=== PATIENT | female | born 1970 | race Caucasian/White ===

== ENCOUNTER → 2017-08-03 | Outpatient (CLI) | payer BC ==
[~2017-08-03] MED LIST: CRS350T PO; HYDR-2890 PO; HYDR1TAB PO; IBUP-15 PO; IBUP-1773 PO; LOESTRIN 24; NAPR220T76 PO
--- NOTE | 2017-08-03 12:38 | Diagnostic Imaging Report ---
PROCEDURE: US Gallbladder. TECHNIQUE: Multiple real-time grayscale images were obtained over the right upper quadrant in various projections. INDICATION: Right upper quadrant pain. FINDINGS: The visualized portion of the pancreas appear unremarkable. The liver is fairly homogeneous with no focal lesion seen. Hepatopetal flow in the portal vein is seen. The gallbladder demonstrates no stones or wall thickening. No pericholecystic fluid is seen. The CBD is 5 mm in caliber. The right kidney is 11.2 cm in length with no hydronephrosis or focal lesion. There is no fluid collection in the upper right abdomen seen. IMPRESSION: Unremarkable exam. Dictated by: Dictated on workstation # [id number]
== END ==
LOC: RAD 07:26
PROVIDERS: ATTEND Surgery
DX: R10.11 Right upper quadrant pain (principal)
CPT/HCPCS: 76705

== ENCOUNTER → 2017-08-06 | Outpatient (CLI) | payer BC ==
[~2017-08-06] MED LIST changes: +CATHETER FLUSH 10 ML SYR IV PRN
--- NOTE | 2017-08-06 14:40 | Diagnostic Imaging Report ---
CLINICAL INDICATION: Patient with right upper quadrant pain. COMPARISON: Gallbladder ultrasound dated 08/03/2017. PROCEDURE: The patient was administered 5.0 millicuries of technetium 99m Choletec. After 60 minutes of the images, one can of Ensure was drink followed by another 60 minutes of imaging. A nuclear medicine hepatobiliary scan with ejection fraction was performed. FINDINGS: There is prompt uptake and excretion of radiotracer by the liver. Activity is visible in the gallbladder by 15 minutes and the small bowel by 25 minutes. Ejection fraction of the gallbladder is calculated at 50% (normal >35%). The gallbladder visibly empties on the scans following the ingestion of Ensure. IMPRESSION: Normal hepatobiliary scan with normal gallbladder ejection fraction. Dictated by: Dictated on workstation # [id number]
== END ==
LOC: CARD 11:51
PROVIDERS: ATTEND Surgery
DX: R10.11 Right upper quadrant pain (principal)
CPT/HCPCS: 78227

== ENCOUNTER 2017-08-10 12:00 | Outpatient (CLI) | payer BC ==
[~2017-08-10] VITALS: Ht 172.7 cm; Wt 70.8 kg
[~2017-08-10 12:00] MED LIST changes: -CATHETER FLUSH 10 ML SYR IV PRN
[2017-08-10 12:14] VITALS: BP 110/68
[2017-08-10 12:29] LABS: BASOPHILS # (AUTO) 0.1 10^3/uL (0.0-0.1); BASOPHILS % (AUTO) 1 % (0-10); EOSINOPHILS # (AUTO) 0.4 10^3/uL (0.0-0.3); EOSINOPHILS % (AUTO) 4 % (0-10); LYMPHOCYTES # (AUTO) 2.9 X 10^3 (1.0-4.0); LYMPHOCYTES % (AUTO) 32 % (12-44); MEAN CORPUSCULAR HEMOGLOBIN 32 PG (25-34); MEAN CORPUSCULAR HGB CONC 34 G/DL (32-36); MEAN CORPUSCULAR VOLUME 95 FL (80-99); MEAN PLATELET VOLUME 9.7 FL (7.4-10.4); MONOCYTES # (AUTO) 0.5 X 10^3 (0.0-1.0); MONOCYTES % (AUTO) 5 % (0-12); NEUTROPHILS # (AUTO) 5.4 X 10^3 (1.8-7.8); NEUTROPHILS % (AUTO) 58 % (42-75); PLATELET COUNT 317 10^3/uL (130-400); RED BLOOD COUNT 4.32 10^6/uL (4.35-5.85); RED CELL DISTRIBUTION WIDTH 12.5 % (10.0-14.5); WHITE BLOOD COUNT 9.2 10^3/uL (4.3-11.0)
== END 2017-08-10 12:17 | disposition home or self-care (01) ==
LOC: PREOP 12:00
PROVIDERS: ATTEND Surgery
DX: Z01.818 Encounter for other preprocedural examination (principal); J21.9 Acute bronchiolitis, unspecified; R10.13 Epigastric pain; K82.8 Other specified diseases of gallbladder
CPT/HCPCS: 36415; 85025; 87081

== ENCOUNTER 2017-08-16 12:28 | Day surgery (SDC) | payer BC ==
[~2017-08-16] VITALS: Ht 172.7 cm; Wt 70.8 kg
--- OUTSIDE RECORDS SUMMARY | 2017-08-16 12:31 | XMS REPORT | Continuity of Care Document ---
Author Author [facility] Organization [facility] Address Unknown Phone Unavailable Allergies Active Description Code Type Severity Reaction Onset Reported/Identified Relationship to Patient Clinical Status Yes NKANo Known Allergies NKA Miscellaneous Allergy Mild N/A 09/15/2008 Medications Problems Date Dx Coded Attending Type Code Diagnosis Diagnosed By 04/07/2011 Ot 813.44 FX LOW RADIUS W ULNA-CL 04/07/2011 Ot 959.3 ELB/FOREARM/WRST INJ NOS 04/07/2011 Ot E000.8 OTHER EXTERNAL CAUSE STATUS 04/07/2011 Ot E001.0 ACTIVITIES INVOLVING WALKING, MARCHING A 04/07/2011 Ot E849.0 ACCIDENT IN HOME 04/07/2011 Ot E888.9 FALL NOS 04/12/2011 Ot 813.44 FX LOW RADIUS W ULNA-CL 04/12/2011 Ot E000.8 OTHER EXTERNAL CAUSE STATUS 04/12/2011 Ot E016.1 ACTIVITIES INVOLVING GARDENING AND LANDS 04/12/2011 Ot E849.0 ACCIDENT IN HOME 04/12/2011 Ot E888.9 FALL NOS 06/09/2012 Ot 724.2 LUMBAGO 04/30/2014 INA JUARES FACC, ALI FACP CCDS Ot 305.1 TOBACCO USE DISORDER 04/30/2014 INA JUARES FACC, ALI FACP CCDS Ot 786.59 CHEST PAIN NEC 04/30/2014 INA JUARES FACC, ALI FACP CCDS Ot V17.3 FAM HX-ISCHEM HEART DIS 09/15/2015 Ot 813.44 09/15/2015 Ot E000.8 09/15/2015 Ot E001.0 09/15/2015 Ot E849.0 09/15/2015 Ot E888.9 09/15/2015 Ot V72.83 09/15/2015 Ot V74.8 09/15/2015 Ot 240.9 09/15/2015 Ot V76.12 09/15/2015 Ot 240.9 09/15/2015 Ot 793.80 06/15/2016 Ot 813.44 FX LOW RADIUS W ULNA-CL 06/15/2016 Ot E000.8 OTHER EXTERNAL CAUSE STATUS 06/15/2016 Ot E001.0 ACTIVITIES INVOLVING WALKING, MARCHING A 06/15/2016 Ot E849.0 ACCIDENT IN HOME 06/15/2016 Ot E888.9 FALL NOS 06/15/2016 Ot V72.83 EXAM PRE-OPERATIVE NEC 06/15/2016 Ot V74.8 SCREEN-BACTERIAL DIS NEC 06/15/2016 Ot 240.9 GOITER NOS 06/15/2016 Ot V76.12 OTH SCREEN MAMMO-MALIGN NEOPLASM OF JONNY 06/15/2016 Ot 240.9 GOITER NOS 06/15/2016 Ot 793.80 UNSPEC ABNORMAL MAMMOGRAM 10/17/2016 Ot 240.9 GOITER NOS 10/17/2016 Ot V76.12 OTH SCREEN MAMMO-MALIGN NEOPLASM OF JONNY 10/17/2016 Ot 240.9 GOITER NOS 10/17/2016 Ot 793.80 UNSPEC ABNORMAL MAMMOGRAM 11/05/2016 Ot 240.9 GOITER NOS 11/05/2016 Ot V76.12 OTH SCREEN MAMMO-MALIGN NEOPLASM OF JONNY 11/05/2016 Ot 240.9 GOITER NOS 11/05/2016 Ot 793.80 UNSPEC ABNORMAL MAMMOGRAM 02/03/2017 Ot 240.9 GOITER NOS 02/03/2017 Ot 793.80 UNSPEC ABNORMAL MAMMOGRAM Procedures Results Encounters ACCT No. Visit Date/Time Discharge Status Pt. Type Provider Facility Loc./Unit Complaint [id number] 08/06/2017 12:00:00 2016 23:59:59 CLS Preadmit IZZY MELARA MD [facility] CARD RUQ PAIN [id number] 08/03/2017 07:45:00 2016 23:59:59 CLS Preadmit IZZY MELARA MD [facility] RAD RUQ PAIN [id number] 04/29/2014 12:38:00 2013 10:30:00 DIS Inpatient INA JUARES FACC, DOTTIE HINES CCDS [facility] CSD CHEST PAIN [id number] 06/09/2012 15:12:00 Document Registration [id number] 08/22/2011 14:04:00 Document Registration [id number] 08/16/2011 11:41:00 Document Registration [id number] 08/08/2011 09:43:00 Document Registration [id number] 04/12/2011 05:35:00 Document Registration [id number] 04/11/2011 10:05:00 Document Registration [id number] 04/07/2011 19:42:00 Document Registration
[2017-08-16] MEDS ORDERED: ceFAZolin 1 GM/NS 50 ML IVPB IV ONE ×2 (12:45)
[2017-08-16] MEDS ORDERED: HYDROcodone/APAP 5 MG/325 MG (LORTAB) TAB PO ONE (13:00)
[2017-08-16] MEDS ORDERED: morphine INJ 10 MG/ML 1ML (SYR OR VIAL) IVP PRN (13:00)
[2017-08-16] MEDS ORDERED: ACETAMINOPHEN 325 MG TABLET/CAPLET (TYLENOL) PO PRN (13:00)
[2017-08-16] MEDS ORDERED: ONDANSETRON 4 MG/2 ML (SDV) Z0FRAN IVP PRN ×2 (13:00→16:45)
--- NOTE | 2017-08-16 13:00 | Progress Note-Pre Operative ---
Pre-Operative Progress Note H&P Reviewed The H&P was reviewed, patient examined and no changes noted. Date Seen by Provider: Aug 16, 2017 Time Seen by Provider: 12:45 Date H&P Reviewed: Aug 16, 2017 Time H&P Reviewed: 12:45 Pre-Operative Diagnosis: biliary dyskinesia IZZY MELARA MD Aug 16, 2017 1:00 pm
[2017-08-16] MEDS ORDERED: SEVOFLURANE (ULTANE) 15 ML INHAL SOLN ONE (13:08)
[2017-08-16] MEDS ORDERED: ONDANSETRON 4 MG/2 ML (SDV) Z0FRAN ONE ×3 (13:08→14:42)
[2017-08-16] MEDS ORDERED: fentaNYL INJECTION 100 MCG/2 ML AMP ONE ×2 (13:08→16:06)
[2017-08-16] MEDS ORDERED: DEXAMETHASONE 10 MG/ML (DECADRON) 1 ML VIAL ONE (13:08)
[2017-08-16] MEDS ORDERED: MIDAZOLAM 2 MG/2 ML (VERSED) VIAL ONE (13:08)
[2017-08-16] MEDS ORDERED: LIDOCAINE PF 2% 5 ML (XYLOCAINE) VIAL ONE (13:08)
[2017-08-16] MEDS ORDERED: proPOfol 200 MG/20 ML (DIPRIVAN) VIAL IV ONE (13:08)
[2017-08-16] MEDS ORDERED: ROCURONIUM 50 MG/5 ML (ZEMURON) VIAL IV ONE (13:12)
[2017-08-16] MEDS ORDERED: SCOPOLAMINE 1.5 MG (TRANSDERM-SCOP) PATCH TOP ONE (13:15)
[2017-08-16] MEDS ORDERED: FAMOTIDINE 20MG/2ML IV (PEPCID) IV ONE (13:15)
[2017-08-16] MEDS ORDERED: ONDANSETRON 4 MG/2 ML (SDV) Z0FRAN IV ONE (13:15)
[2017-08-16] MEDS: LACTATED RINGERS 1,000 ML IV PRN ×2 (13:26→16:40)
[2017-08-16] MEDS ORDERED: AMOX-358 PO (13:28)
[2017-08-16] MEDS ORDERED: BUP/EPI 0.5% 1:200,000 (MARCAINE) 10ML VIAL IJ ONE (14:12)
[2017-08-16] MEDS ORDERED: morphine INJ 10 MG/ML 1ML (SYR OR VIAL) ONE ×2 (14:42→16:05)
[2017-08-16] MEDS ORDERED: NEOSTIGMINE (BLOXIVERZ ) 1 MG/1ML 10 ML VIAL ONE (15:57)
[2017-08-16] MEDS ORDERED: GLYCOPYRROLATE 0.2 MG/ML (ROBINUL) 2 ML VIAL ONE (15:57)
--- NOTE | 2017-08-16 16:30 | Progress Note-Post Operative ---
Post-Operative Progess Note Surgeon (s)/Provider Relations Specialist (s) Surgeon IZZY MELARA MD Provider Relations Specialist: fransisco lane SECURITY OPERATIONS SPECIALIST Pre-Operative Diagnosis biliary dyskinesia Post-Operative Diagnosis same, reflux eosphagitits(class B), moderate gastritis. Procedure & Operative Findings Date of Procedure 08/16/17 Procedure Performed/Findings EGD with bx. Anesthesia Type GET Estimated Blood Loss Estimated blood loss (mL): minimal Specimens/Packing Specimens Removed gallbladder IZZY MELARA MD Aug 16, 2017 4:30 pm
[2017-08-16] MEDS ORDERED: PANT40TA2 PO (16:32)
[2017-08-16] MEDS ORDERED: HYDR-3816 PO (16:32)
--- NOTE | 2017-08-16 16:33 | Discharge Inst-Surgical ---
D/C Lap Instructions-KELTON New, Converted, or Re-Newed RX: RX on Chart Follow Up Appt in 2 weeks Activity as tolerated No driving for 24 hours No driving while on pain medications Incentive Spirometry use every 2 hours while awake Regular Diet Symptoms to Report: Fever over 101 degree F, Nausea/Vomiting Infection Signs and Symptoms to report: Increased redness, Foul odor of wound, Increased drainage Bathing instructions: May shower Operative Area Clean/Dry; Keep incision clean/dry If any problems/questions: Contact your physician or go to Emergency Room IZZY MELARA MD Aug 16, 2017 4:33 pm
[2017-08-16] MEDS: morphine INJ 10 MG/ML 1ML (SYR OR VIAL) IVP PRN ×2 (16:42→16:50)
[2017-08-16] MEDS ORDERED: HYDROmorphone (DILAUDID) 2 MG/ML VIAL IVP PRN (16:45)
[2017-08-16] MEDS ORDERED: PROMETHAZINE INJ 25 MG/ML (PHENERGAN) AMP IVP PRN (16:45)
[2017-08-16 17:30] VITALS: BP 113/69
[2017-08-16 18:00] VITALS: BP 107/58
[2017-08-16 18:20] VITALS: BP 107/58
--- NOTE | 2017-08-17 06:24 | OPERATIVE REPORT ---
DATE OF SERVICE: 08/16/2017 PREOPERATIVE DIAGNOSES: Symptomatic biliary dyskinesia, peptic ulcer disease and gastroesophageal reflux disease. POSTOPERATIVE DIAGNOSES: Symptomatic biliary dyskinesia, reflux esophagitis class B and moderate gastritis. PROCEDURE: Laparoscopic cholecystectomy, EGD with biopsy. SURGEON: Dr. Melara. MANAGER WHOLESALE: Lino Clark APRN ANESTHESIA: General endotracheal. ESTIMATED BLOOD LOSS: Minimal. FINDINGS: Moderate gallbladder wall dilatation. No stones identified. Reflux esophagitis class B, no hiatal hernia, moderate-severity gastritis. No formal ulcers, polyps or any neoplasms. Pylorus and duodenum appeared normal with no distal obstructions. DISPOSITION: The patient tolerated the procedure well. INDICATIONS: The patient is a 46-year-old female who has had a several-month issue with pain in the epigastric region as well as the right upper abdominal quadrant. She was unsure what this was before. She had reported that she has had issues with peptic ulcer disease as well as reflux for several years now and has been taking [id number] antacids. She reports that the pain that she has been having in the past few months is new and is more localized in the epigastric region as well as the right upper abdominal quadrant and is usually followed after a meal. An ultrasound was performed, which does not show any gallstones. A HIDA scan was then performed, which did show a normal ejection fraction of 50%; however, after the administration of Kinevac, she did have reproduction of symptoms with pain in the right upper abdominal quadrant as well as nausea and vomiting for approximately [id number] after the administration of the Kinevac analog. DESCRIPTION OF PROCEDURE: The patient was brought to the operating room, laid supine on the table. After adequate IV pain and sedative medications and general endotracheal intubation, the abdomen was prepped and draped in a standard surgical fashion. A 0.5% Marcaine with epinephrine was then used to anesthetize the overlying skin in the left upper abdominal quadrant. A small transverse skin incision made using a 15 blade. A 0 silk suture was applied to the medial aspect of the incision for retraction, a Veress needle inserted with a low opening pressure of 0 mmHg and the abdomen was insufflated to 15 mmHg pressure. The Veress needle removed and a 5 mm Xcel trocar placed followed by a 5 mm 45-degree angle laparoscope visualizing the peritoneal cavity. A 4-quadrant abdominal exploration was performed. There was moderate distention of the gallbladder; however, no inflammatory signs. The remainder of the omentum, small bowel, stomach and liver appeared normal. Under direct visualization, we then proceeded to place a supraumbilical 10 mm port after the skin and peritoneum were anesthetized using 0.5% Marcaine with epinephrine and a transverse skin incision made using a 15 blade. In a similar manner, a right upper abdominal quadrant 5 mm port was placed. The patient was then placed in reverse Trendelenburg position as well as plane right side up, left side down. The fundus of the gallbladder was then retracted anteriorly and superiorly. The hepatoduodenal ligament was then opened using electrocautery on the hook instrument as well as blunt dissection. The entire critical view of safety was identified including the triangle of Calot as well as the cystic duct and artery going into the gallbladder as well as the liver behind the proximal gallbladder. A timeout was then taken and the cystic duct and artery were clipped proximally and distally and cut with EndoShears. The gallbladder was then dissected off the liver bed using electrocautery on the hook instrument with visualization of good hemostasis as well as no leaking ducts of Luschka. The gallbladder was removed through the 10 mm port site using an EndoCatch bag. The 10 mm port site fascia and peritoneum were then closed under direct visualization using a Malick-Anabel device and 0 Vicryl suture. The abdomen was desufflated, the remaining ports were removed. All skin incisions were closed using 4-0 Monocryl running subcuticular sutures. Wounds were then cleaned and covered with Dermabond. The patient tolerated this portion of the procedure well. We will start IV and oral pain medication as well as a clear liquid diet. Once she is tolerating clears and has good pain control with oral pain medications and ambulating well, we will discharge her home. She will be instructed to do no heavy lifting or exertion for the next 2 weeks. Under the same general endotracheal anesthesia, we then proceeded with the EGD portion of the procedure. The mouthpiece was applied. The endoscope was placed in the mouth, visualizing the pharynx and hypopharyngeal region. Vocal cords, epiglottis and vallecula identified and appeared to be normal. The endotracheal tube was visualized going through the vocal cords. The endoscope was then gently intubated in the esophageal opening and esophagus insufflated. The endoscope was then advanced through the first, second and third portions of the esophagus. At the level of the GE junction, a reflux esophagitis class B identified. There were no ulcers or strictures identified in this region. A biopsy was taken with forceps with visualization of good hemostasis. The endoscope was then easily advanced into the stomach and the endoscope retroflexed visualizing no significant hiatal hernia. A moderate-severity gastritis was noted. There were no formal ulcers, polyps or any neoplasms identified. A biopsy was taken from stomach antrum with visualization of good hemostasis. The endoscope was then advanced through the pylorus and the first and second portions of the duodenum, which appeared normal with no distal obstructions. The endoscope was then slowly withdrawn taking a second look and suctioning residual air with no additional findings. The patient tolerated this portion of the procedure well. For her reflux esophagitis and gastritis, we will recommend necessary lifestyle and diet accommodations including smoking cessation as well as avoidance of caffeinated and alcoholic beverages as well as spicy, greasy and acidic foods. She also needs to take small and more frequent meals, avoidance of eating at night as well as head elevation while lying supine. We will also start her on Protonix 40 mg daily. Job ID: [id number] DocumentID: [id number] Dictated Date: 08/16/2017 16:40:28 Bankruptcy Attorney Date: 08/17/2017 02:08:03 Dictated By: IZZY MELARA MD
== END 2017-08-16 18:20 | disposition home or self-care (01) ==
LOC: SDC 12:28
PROVIDERS: ATTEND Surgery
DX: K81.1 Chronic cholecystitis (principal); K21.0 Gastro-esophageal reflux disease with esophagitis; K29.70 Gastritis, unspecified, without bleeding; F17.210 Nicotine dependence, cigarettes, uncomplicated
CPT/HCPCS: 94664

== ENCOUNTER 2023-01-23 22:17 | Emergency (ER) | payer BC ==
[~2023-01-23] VITALS: Ht 172 cm; Wt 63.5 kg
[~2023-01-23 22:17] MED LIST changes: +AMOX-358 PO; +HYDR-34 PO; +PANT40TA2 PO
[2023-01-23] MEDS ORDERED: CYCLOBENZAPRINE 10 MG (FLEXERIL) TAB PO STA (22:36)
[2023-01-23] MEDS ORDERED: LIDO700A45 TP (22:41)
[2023-01-23] MEDS ORDERED: GABA-486 PO (22:41)
[2023-01-23] MEDS ORDERED: CYCL10TA25 PO (22:41)
--- NOTE | 2023-01-23 22:42 | ED Back Pain ---
General Chief Complaint: Back Problems Stated Complaint: BACK PAIN Nursing Triage Note: PT STATES HX OF BACK PAIN, MED SHOT BY THIS MORNING BUT PAIN CAME BACK Source of Information: Patient Exam Limitations: No Limitations History of Present Illness Date Seen by Provider: Jan 23, 2023 Time Seen by Provider: 22:24 Initial Comments 52-year-old female with past medical history of chronic low back pain coming in due to low back pain. Tweaked her back lifting something Sunday, no weakness, numbness, or any other concerns. Does have pain with walking. Saw her doctor earlier this morning shot of Toradol. Had 1 episode where she urinated on herself, she believes it was because she could not make it to the bathroom. Has made it to the bathroom since then and has not had any bowel incontinence. Denies any fever, trauma, or any other concerns. does not take any medicines daily. Allergies and Home Medications Allergies Coded Allergies: NKANo Known Allergies (Unverified Allergy, Mild, 09/15/08) Patient Home Medication List Home Medication List Reviewed: Yes Amoxicillin/Potassium Clav (Augmentin 875-125 Tablet) 1 Each Tablet, 1 EACH PO BID, (Reported) Entered as Reported by: NATALIYA YANG on 08/16/17 1328 Cyclobenzaprine HCl (Cyclobenzaprine HCl) 10 Mg Tablet, 10 MG PO Q8H PRN for SPASMS Prescribed by: ALIZA KRUSE on 01/23/232240 Gabapentin (Gabapentin) 100 Mg Capsule, 300 MG PO Q8H Prescribed by: ALIZA KRUSE on 01/23/232240 Hydrocodone Bit/Acetaminophen (Lortab 7.5 Mg Tablet) 1 Each Tablet, 1-2 EACH PO Q4H Prescribed by: IZZY MELARA on 08/16/17 163 Lidocaine (Lidocaine 5% Patch) 5 % Adh..patch, 1 EACH TP Q12H PRN for Neuropathic pain Prescribed by: ALIZA KRUSE on 01/23/232240 Pantoprazole Sodium (Protonix) 40 Mg Tablet.dr, 40 MG PO DAILY Prescribed by: IZZY MELARA on 08/16/17 163 Review of Systems Constitutional: No fever EENTM: no symptoms reported Respiratory: no symptoms reported Cardiovascular: no symptoms reported Musculoskeletal: see HPI Skin: no symptoms reported Psychiatric/Neurological: No Symptoms Reported Past Hapnltp-Rgoidu-Agtadg Hx Patient Social History Tobacco Use?: Yes Tobacco type used: Cigarettes Smoking Status: Current Everyday Smoker Substance use?: No Alcohol Use?: Yes Alcohol Frequency: Once in a while Immunizations Up To Date Tetanus Booster (TDap): More than 5yrs PED Vaccines UTD: Yes Seasonal Allergies Seasonal Allergies: No Past Medical History Surgery/Hospitalization HX: HYSTERECTOMY, MARIO Hysterectomy Reproductive Disorders: Yes TEACHER LEARNING DISABLED History: Hysterectomy Sexually Transmitted Disease: No Gastroesophageal Reflux, Gall Bladder Disease Adverse Reaction/Blood Tranf: No Family Medical History Family history: Cardiovascular disease 19 FATHER (40s) Physical Exam Vital Signs Vital Signs - First Documented 01/23/23 22:30 Temp 36.8 Pulse 109 Resp 20 B/P (MAP) 139/90 (106) Pulse Ox 96 O2 Delivery Room Air Capillary Refill : Less Than 3 Seconds Height, Weight, BMI Height: 5'8.00" Weight: 156lbs. 0.0oz. 70.823934mq; 21.00 BMI Method:Stated General Appearance: No Apparent Distress, WD/WN HEENT: PERRL/EOMI, Normal ENT Inspection, Pharynx Normal Neck: Full Range of Motion, Normal Inspection, Non Tender, Supple Cardiovascular: Regular Rate, Rhythm, No Edema, Normal Peripheral Pulses Respiratory: Chest Non Tender, Lungs Clear, Normal Breath Sounds, No Accessory Muscle Use Gastrointestinal: Normal Bowel Sounds, Non Tender, Soft Back: Normal Inspection, No CVA Tenderness, No Vertebral Tenderness, Other (Paravertebral tenderness in her lower back, negative straight leg test, normal perineal sensation) Extremity: Normal Capillary Refill, Normal Inspection, Normal Range of Motion, Non Tender, No Calf Tenderness, No Pedal Edema Neurologic/Psychiatric: Alert, Oriented x3, No Motor/Sensory Deficits, Normal Mood/Affect Skin: Normal Color, Warm/Dry Progress/Results/Core Measures Results/Orders My Orders Orders - ALIZA KRUSE MD Ct Lumbar Spine Wo (01/23/23 22:36) Ketorolac Injection (Toradol Injection) (01/23/23 22:45) Dexamethasone Oral Soln (Ed) (Decadron I (01/23/23 22:36) Cyclobenzaprine Tablet (Flexeril Tablet) (01/23/23 22:36) Gabapentin Capsule/Tablet (Neurontin Cap (01/23/23 22:45) Medications Given in ED Current Medications Medications Dose Ordered Sig/Arnaldo Route Start Time Stop Time Status Last Admin Dose Admin Gabapentin 300 mg ONCE ONCE PO 01/23/23 22:45 01/23/23 22:46 DC 01/23/23 22:49 300 MG Ketorolac Tromethamine 15 mg ONCE ONCE IM 01/23/23 22:45 01/23/23 22:46 DC 01/23/23 22:45 15 MG Vital Signs/I&O 01/23/23 01/23/23 22:30 22:45 Temp 36.8 36.8 Pulse 109 Resp 20 B/P (MAP) 139/90 (106) Pulse Ox 96 O2 Delivery Room Air Blood Pressure Mean: 106 Progress Progress Note : Progress Note 52-year-old female presenting for low back pain. ABCs were intact and vitals were stable on presentation. Physical exam with no focal neurodeficits, normal cranial sensation, the patient does not have any incontinence at this time. She believes the episode earlier was likely due to her pain and not being able to make it to the bathroom. Give him some IM shots and oral medications here for symptomatic management. CT imaging ordered on stat rad read showed a 4 to 5 mm right paracentral disc protrusion at L4 likely impinging on the right L4 nerve root. She is not showing symptoms of L4 radiculopathy on exam. Certainly not showing any signs of cauda equina here in the emergency department or significant stenosis. She will need follow-up with spine surgeon as an outpatient. Sent medications to her pharmacy for outpatient pain control. Departure Impression Primary Impression: Low back pain Qualified Codes: M54.50 - Low back pain, unspecified Disposition: 01 HOME, SELF-CARE Condition: Stable Departure-Patient Inst. Decision time for Depature: 02:49 Referrals: SHI GUTIERRES MD (PCP/Family) Primary Care Physician Patient Instructions: Low Back Pain ED Add. Discharge Instructions: On the CT today you do have some disc bulging at L3 and L4. The symptoms actually do not fit necessarily what you have been feeling, but certainly could be causing some pain. Please call your doctor and get a referral to a spine surgeon if you are not improving in the next 2 weeks. Take ibuprofen and/or Tylenol as needed for pain. Other pain medicines were sent to your pharmacy to try to help with your discomfort. If you are unable to urinate, consistently or urinating on yourself, or are defecating on yourself, we want you to see the doctor sooner. Scripts Lidocaine (Lidocaine 5% Patch) 5 % Adh..patch 1 EACH TP Q12H PRN for Neuropathic pain MDD 2 for 14 Days, #28 PATCH 2 patches max for 12 hours, then 12 hours patch-free period. Prov: ALIZA KRUSE MD 01/23/23 Gabapentin (Gabapentin) 100 Mg Capsule 300 MG PO Q8H for Neuropathic pain for 14 Days, #126 CAP Prov: ALIZA KRUSE MD 01/23/23 Cyclobenzaprine HCl (Cyclobenzaprine HCl) 10 Mg Tablet 10 MG PO Q8H PRN for SPASMS for 5 Days, #15 TAB 0 Refills Prov: ALIZA KRUSE MD 01/23/23 Work/School Note: Work Release Form Date Seen in the Emergency Department: Jan 23, 2023 Return to Work: Jan 25, 2023 Restrictions: No Restrictions ALIZA KRUSE MD Jan 23, 2023 22:42
[2023-01-23] MEDS ORDERED: KETOROLAC 30 MG/ML VIAL IM ONE (22:45)
[2023-01-23] MEDS ORDERED: GABAPENTIN 100 MG (NEURONTIN) CAP PO ONE (22:45)
[2023-01-24 02:59] VITALS: BP 128/78
--- NOTE | 2023-01-24 07:11 | Diagnostic Imaging Report ---
PROCEDURE: CT lumbar spine without contrast. TECHNIQUE: Multiple contiguous axial images were obtained through the lumbar spine without the use of intravenous contrast. Sagittal and coronal reformations were then performed. Auto Exposure Controls were utilized during the CT exam to meet ALARA standards for radiation dose reduction. INDICATION: Low back pain EXAMINATION: CT lumbar spine 01/23/2023 FINDINGS: There is normal height and alignment of the vertebral bodies. No fractures or subluxations appreciated. . There is a likely right paracentral disc protrusion at L3-L4. This causes at least moderate central stenosis with right lateral recess narrowing. Visualized abdominal structures unremarkable for acute abnormality. IMPRESSION: 1. Suspected disc bulge at L3-L4. MRI could provide better characterization as clinically indicated. No acute osseous abnormality. Findings agree with the preliminary report. Dictated by: Dictated on workstation # [id number]
== END 2023-01-24 02:59 | disposition home or self-care (01) ==
LOC: EDUNIT# 22:17 → ER 22:19
DX: M54.50 Low back pain, unspecified (principal); F17.210 Nicotine dependence, cigarettes, uncomplicated; Z28.310 Unvaccinated for COVID-19; X50.0XXA Overexertion from strenuous movement or load, initial encounter
CPT/HCPCS: 72131; 99284